=== PATIENT | male | born 1990 | race American Indian/Alaskan Native ===

== ENCOUNTER 2018-08-19 03:35 | Emergency (ER) | payer SELFPAY ==
--- NOTE | 2018-08-19 08:31 | Emergency Department Report ---
HPI - General Chief Complaint: Extremity Injury, Upper Time Seen by Provider: 08/19/18 07:53 - HPI HPI: Patient is a 27-year-old male healthy looking with no other prior medical condition presents today complaining of left elbow pain that started yesterday. Patient states that he was trying to open a door with a scalpel and accidentally injured date. Patient states that elbow pain is localized to the elbow. He denies any dislocation, swelling, redness or laceration to the elbow. ED Past Medical Hx - Past Medical History Previous Medical History?: Yes Hx Psychiatric Treatment: Yes (schizophrenia versus schizoaffective versus bipolar) - Surgical History Past Surgical History?: No - Social History Smoking Status: Current Every Day Smoker Substance Use Type: Alcohol, Marijuana - Medications Home Medications: Home Medications Medication Instructions Recorded Confirmed Last Taken Type risperiDONE [Risperdal] 2 mg PO QDAY 04/03/14 04/03/14 Unknown History Ibuprofen [Motrin] 800 mg PO Q8HR #20 tablet 08/19/18 Unknown Rx ED Review of Systems ROS: Stated complaint: ELBOW PAIN Other details as noted in HPI Comment: All other systems reviewed and negative Physical Exam - Physical Exam Vital Signs: Vital Signs 08/19/18 04:19 Temperature 99.4 F Pulse Rate 93 H Respiratory 20 Rate Blood Pressure 119/53 O2 Sat by Pulse 97 Oximetry Physical Exam: GENERAL: Alert and oriented x3, sitting in ED chair #38 chair, no apparent distress, Normal Gait, atraumatic. HEAD: Head is normocephalic and a-traumatic. LUNGS: Symetrical with respiration, HEART: S1, S2 present, regular rate and rhythm without murmur, EXTREMITIES/MUSCULOSKELETAL: No cyanosis, erythema, rash, lesions or edema to the left elbow or any other extremity joint. Full ROM bilaterally. radial Pulses 2+ bilaterally. UE 5+ strength bilaterally, left elbow nontender to palpation, patient able to flex and extend arm. NEUROLOGIC: The patient is cooperative with no focal neurologic deficits. SKIN: Warm and dry, No lesions, No ulceration or induration present. ED Course Vital Signs 08/19/18 04:19 Temperature 99.4 F Pulse Rate 93 H Respiratory 20 Rate Blood Pressure 119/53 O2 Sat by Pulse 97 Oximetry ED Medical Decision Making - Medical Decision Making 27-year-old male presents with left elbow pain Upon my evaluation there is no dislocation or signs of any fracture. Patient was able to move his arm freely without any problems. Discussed the patient to follow up with his primary care physician. Vital signs are normal patient is in acute distress. Critical care attestation.: If time is entered above; I have spent that time in minutes in the direct care of this critically ill patient, excluding procedure time. ED Disposition Clinical Impression: Left elbow pain Disposition: DC- TO HOME OR SELFCARE Is pt being admited?: No Does the pt Need Aspirin: No Condition: Stable Instructions: Elbow Sprain (ED), Arthralgia (ED), Heat Pack Application (ED) Additional Instructions: Make sure to follow up with the primary care physician as discussed. Take all your medications as you've been prescribed. If you have any worsening symptoms or develop new symptoms please return to ED immediately. Prescriptions: Ibuprofen [Motrin] 800 mg PO Q8HR #20 tablet Referrals: PRIMARY CARE, [Primary Care Provider] - 3-[address] [facility] [Outside] - 3-5 Days [facility] [Outside] - 3-5 Days Forms: Work/School Release Form(ED) Time of Disposition: 08:35
== END 2018-08-19 08:41 | disposition home or self-care (01) ==
LOC: ED 03:35
CPT/HCPCS: 99282